=== PATIENT | female | born 1975 | race Caucasian/White ===

== ENCOUNTER 2024-07-27 19:24 | Inpatient (IN) ==
--- NOTE | 2024-07-27 19:42 | Emergency Department Note ---
Impression & Plan Spigelian hernia Discharge ED Provider Note HPI: History obtained from patient. The patient is a 49-year-old female who presents the emergency department chief complaint of abdominal pain and nausea. Patient states that the pain began earlier this afternoon. Patient states that she has a history of a recent cholecystectomy on 06/23/[address] Tashi Curiel, she states that there was a palpable mass underneath the right laparoscopic incision 2 weeks ago at her follow-up appointment with general surgery, she was told this was likely a small hernia and given that it was easily reduced observation was recommended. Patient states earlier today when she developed abdominal pain she felt like this area had enlarged and was tender, she states that she also had some generalized pain throughout her entire abdomen. On arrival here to the ED the patient is hypertensive but otherwise hemodynamically stable, she appears to be in no acute distress on my initial assessment. ROS: - Per HPI Differential Diagnosis: Incarcerated incisional hernia, viral gastroenteritis, small bowel obstruction, perforated viscus, diverticulitis, choledocholithiasis, bile leak, amongst other potential pathologies. *Outpatient medications and allergy history reviewed. PE: General: Alert HEENT: Normocephalic, trachea midline Eyes: Extraocular eye movement is intact, no scleral erythema Pulmonary: Clear to auscultation bilaterally, no wheezing Cardio: Regular rate and rhythm GI: Abdomen is soft to palpation, there is a firm mass palpable to the right side of the abdomen underneath healing incision that is not reducible : No suprapubic tenderness MSK: No evidence of trauma or malformation of the extremities, no edema Skin: No evidence of rash Neuro: Alert, no focal deficits Psychiatric: Cooperative INDEPENDENT INTERPRETATIONS: teletypesetter monitor: (As interpreted by myself): - An order was placed for continuous cardiac monitoring - Patient was noted to be in sinus rhythm with rate of 80 Interventions provided in ED: -IV morphine, IV Zofran, IV fluid bolus Medical Decision Making: IV was established and lab work obtained, patient was placed on cardiac catheterization technologist. I did palpate what I believed to be a hernia underneath the patient's right sided abdominal incision, this was not reducible on my initial attempt as the patient was having pain. At this point lab work was obtained that shows no leukocytosis, hemoglobin is normal, platelet count is normal, CMP does not show any critical findings. CT imaging of the abdomen pelvis was obtained. I did review the images prior to formal interpretation by radiology and did notice a right sided hernia. There was some surrounding fat stranding and therefore I went back into the room and following another dose of pain medicine I did again attempt to reduce the hernia with a satisfactory result. There was a palpable reduction and the patient stated that her pain in that area was immediately improved following the reduction of the hernia. CT imaging results were then interpreted by the radiologist and they did show evidence of a spigelian hernia in the area of concern with possible developing incarceration and small bowel obstruction. On my reassessment the patient remains comfortable, I did palpate the area again and there is no recurrence of the hernia. I discussed the patient's presentation and the above hernia reduction with on-call general surgery, Dr. Villeda, he does state that the patient will require definitive repair of this hernia but it does not need to happen emergently given that there was a satisfactory reduction of the hernia. He will inform Dr. Tashi Curiel of the patient's presentation tonight and the patient can follow-up with her in the office. I did therefore recommend the patient call Dr. Tashi Curiel's office tomorrow morning to schedule her follow-up appointment and to schedule elective repair of her right sided spigelian hernia. Patient expressed an agreement understanding of this, she states her pain is improved, she is in agreement to the above plan and she will return to the ER if she has any recurrence of the hernia or any similar pain. Patient was in agreement to this plan as was her at the bedside and the patient was discharged in stable condition. Consultants/Discussions held with other healthcare providers: -General Surgery, Dr. Villeda Disposition discussion held by myself with: -Patient and at bedside Diagnosis: 1. Right-sided spigelian hernia with developing incarceration, acute 2. Right-sided abdominal wall hernia, acute, reducible Disposition: Discharge Advised outpatient follow up that was discussed with the patient: -Return to the ED immediately with any new or worsening symptoms -Follow up with a PCP in 2-3 Days -General Surgery as discussed, patient will call tomorrow morning to schedule her follow-up appointment Jeremy Jean DO Emergency Medicine Past Med/Surg History Problem List (Updated 07/27/24 @ 22:21 by Jeremy Jean DO) Spigelian hernia (Acute) Chills with fever Biliary colic symptom Hypertension Cholelithiasis RUQ pain Tenosynovitis of ankle Chronic ankle pain Medical History (Updated 07/27/24 @ 22:21 by Jeremy Jean DO) Hx of fall end of April 2024, evaluated by PCP for a mild concussion. pt doing well currently. Hx of vertigo PONV (postoperative nausea and vomiting) Hypertension Seasonal allergies Surgical History (Updated 06/23/24 @ 10:43 by Sravanthi Wright, MERVIN) Hx laparoscopic cholecystectomy (06/23/24) Robotic Assisted Laparoscopic Cholecystectomy(Not Applicable) - Laurie Salas DO History of ear surgery (2018) 1981 and 2018 (BMT) H/O knee surgery (1985) Right Knee Hx of colonoscopy (2019) Family History Father Cancer Hypertension Mother Myocardial infarction Hypertension Diabetes Sister Pancreatic cancer Diabetes Aunt Breast cancer Grandmother Cervical cancer Social History (Updated 05/15/24 @ 13:12 by Taylor Solis RN) Smoking Status: Never smoker Second Hand Exposure: No; Do You Dip or Chew Tobacco: No; Hx Alcohol Use: No Hx Substance Use: No Preferred Language: Kinyarwanda Communication Ability: Effective Electrical Cad Designer Required: No Beliefs That Will Affect Care: None marital status: Current Living Situation: Spouse and Family Current Living Situation Comment: adult son and current occupational status: employed current occupation: Liability Claims Examiner How many Children do You have: 3 Feels Safe at Home: Yes during the past year weight has: remained stable Allergies Allergies Allergy/AdvReac Type Severity Reaction Status Date / Time No Known Allergies Allergy Verified 07/21/24 15:18 Home Meds Home Medications Medication Instructions Recorded Confirmed cyclobenzaprine 10 mg tablet 10 mg PO HS PRN Pain 05/09/24 07/21/24 famotidine 40 mg tablet 40 mg PO HS 05/09/24 07/21/24 fexofenadine 180 mg tablet 180 mg PO QAM 05/09/24 07/21/24 (Allergy Relief (fexofenadine)) fluticasone propionate 50 2 spray intranasal DAILY 05/09/24 07/21/24 mcg/actuation nasal spray,suspension hydroxyzine HCl 25 mg tablet 25 mg PO BID PRN Itching 05/09/24 07/21/24 losartan 100 mg tablet 100 mg PO QAM 05/09/24 07/21/24 nortriptyline 25 mg capsule 25 mg PO HS 05/09/24 07/21/24 pantoprazole 20 mg tablet,delayed 20 mg PO QAM 05/09/24 07/21/24 release sumatriptan succinate 50 mg tablet See Rx Instructions PO .COMPLEX 05/09/24 07/21/24 (Imitrex) azelastine 137 mcg (0.1 %) nasal 2 spray intranasal BID 05/15/24 07/21/24 spray Previous Rx's Medication Instructions Recorded oxycodone 5 mg tablet 5 - 10 mg (1 - 2 x 5 mg) PO 06/23/24 .[id number] PRN pain, for initial therapy, max 6 tabs per day #15 tabs Results & Data (ED) Vital Signs Vital Signs - 24 hr 07/27/24 19:25 07/27/24 19:39 07/27/24 19:59 Temperature 36.8 C Temperature Source Temporal Artery Scan Pulse Rate 83 70 Pulse Rate [Apical] Pulse Rhythm Regular Pulse Rhythm [Apical] Pulse Strength Normal Respiratory Rate 18 Respiratory Effort / Characteristics Non-Labored Spontaneous Respiratory Depth Normal Respiratory Pattern Regular Blood Pressure 184/132 H Blood Pressure [Right Arm] Blood Pressure Mean 149 Blood Pressure Mean [Right Arm] Blood Pressure Position Sitting Blood Pressure Position [Right Arm] Pulse Oximetry 99 97 Oxygen Delivery Method Room Air Room Air Sepsis Recent Fever Within 48 Hours No Sepsis New/Unexplained Change in Mental Status N/A Sepsis Action Taken by Nursing No Action Required 07/27/24 21:25 07/27/24 22:29 Temperature Temperature Source Pulse Rate Pulse Rate [Apical] 71 76 Pulse Rhythm Pulse Rhythm [Apical] Regular Regular Pulse Strength Respiratory Rate 16 16 Respiratory Effort / Characteristics Non-Labored Spontaneous Non-Labored Spontaneous Respiratory Depth Normal Normal Respiratory Pattern Regular Regular Blood Pressure Blood Pressure [Right Arm] 148/94 H 135/91 Blood Pressure Mean Blood Pressure Mean [Right Arm] 112 105 Blood Pressure Position Blood Pressure Position [Right Arm] Semi-fowlers Semi-fowlers Pulse Oximetry 94 97 Oxygen Delivery Method Room Air Room Air Sepsis Recent Fever Within 48 Hours Sepsis New/Unexplained Change in Mental Status Sepsis Action Taken by Nursing Laboratory Data 07/27/24 19:42 07/27/24 19:42 Lab Results 07/27/24 Range/Units 19:42 WBC 9.40 (4.8-10.8) K/ul RBC 5.16 (4.20-5.40) M/uL Hgb 14.4 (12.0-16.0) g/dl Hct 43.1 (37.0-47.0) % MCV 83.5 (80.0-100.0) fL MCH 27.9 (25.0-34.0) pg MCHC 33.4 (32.0-36.0) g/dL RDW Std Deviation 40.4 (36.4-46.3) fL RDW Coeff of Flavio 13.2 (11.5-14.5) % Plt Count 350 (130-400) K/uL MPV 9.2 L (9.4-12.4) fL Immature Gran % (Auto) 0.2 % Neut % (Auto) 68.4 % Lymph % (Auto) 20.1 % Schleicher % (Auto) 8.0 % Eos % (Auto) 2.6 % Baso % (Auto) 0.7 % Neut # (Auto) 6.43 (1.40-6.50) K/uL Lymph # (Auto) 1.89 (1.20-3.40) K/uL Schleicher # (Auto) 0.75 H (0.11-0.59) K/uL Eos # (Auto) 0.24 (0.00-0.50) K/uL Baso # (Auto) 0.07 (0.00-0.20) K/uL Immature Gran # (Auto) 0.02 (0.01-0.20) K/uL PT 10.3 (9.0-12.0) Seconds INR 0.9 (0.9-1.1) Sodium 137 (136-145) mmol/L Potassium 3.3 L (3.5-5.1) mmol/L Chloride 103 (98-107) mmol/L Carbon Dioxide 27 (21-32) mmol/L Anion Gap 7 (3-11) BUN 9 (6-23) mg/dl Creatinine 0.93 (0.6-1.2) mg/dl Est Cr Clr Drug Dosing 73.0 ml/min eGFR 74.88 BUN/Creatinine Ratio 9.7 L (10-20) Glucose 106 H (70-99(Fasting)) mg/dl Calcium 10.1 (8.6-10.3) mg/dl Total Bilirubin 0.4 (0.2-1.0) mg/dl AST 17 (13-39) U/L ALT 13 (7-52) U/L Alkaline Phosphatase 87 (34-104) U/L Total Protein 8.2 (6.0-8.3) gm/dl Albumin 4.7 (3.4-5.0) gm/dl Globulin 3.5 (2.5-4.0) gm/dl Albumin/Globulin Ratio 1.3 (0.9-2) Lipase 15 (11-82) U/L Urine Color Yellow Urine Appearance Clear (Clear) Urine pH 6.0 (4.5-7.5) Ur Specific [place] 1.006 (1.000-1.030) Urine Protein Negative (Negative) Urine Glucose (UA) Negative (Negative) Urine Ketones Negative (Negative) Urine Blood Negative (Negative) Urine Nitrite Negative (Negative) Urine Bilirubin Negative (Negative) Urine Urobilinogen Negative (Negative) Ur Leukocyte Esterase Trace H (Negative) Urine WBC (Auto) 0-5 (0-5) /hpf Urine RBC (Auto) 0-2 (0-2) /hpf U Hyaline Cast (Auto) 0-2 (0-2) /lpf U Epithel Cells (Auto) 0-2 (0-2) /hpf Urine Bacteria (Auto) 1+ H (None Seen) Administered Medications Discontinued Medications Sodium Chloride (Nss) 1,000 mls @ 999 mls/hr IV .Q1H1M ONE Stop: 07/27/24 20:40 Last Infusion: 07/27/24 20:51 Dose: Infused Documented By: Admin: 07/27/24 19:50 Dose: 999 mls/hr Documented By: LANI Morphine Sulfate (Morphine Sulfate 4 Mg/Ml 1 Ml Carp\Vial) 4 mg IV NOW STA Stop: 07/27/24 19:41 Last Admin: 07/27/24 19:50 Dose: 4 mg Documented By: LANI Morphine Sulfate (Morphine Sulfate 4 Mg/Ml 1 Ml Carp\Vial) 4 mg IV NOW STA Stop: 07/27/24 21:19 Last Admin: 07/27/24 21:25 Dose: 4 mg Documented By: LIDYA Ondansetron HCl (Ondansetron Inj 2 Mg/Ml 2 Ml Vial) 4 mg IV NOW STA Stop: 07/27/24 19:41 Last Admin: 07/27/24 19:50 Dose: 4 mg Documented By: JT Imaging Data Radiologist's Impression: Abdomen/Pelvis CT 07/27/24 19:39 CR Exam(s): CT ABDOMEN + PELVIS With Contrast IV Amt: OPTIRAY 320 93ML EXAM: CT Abdomen and Pelvis With Intravenous Contrast CLINICAL HISTORY: abd pain, ? R sided incisional hernia. TECHNIQUE: Axial computed tomography images of the abdomen and pelvis with intravenous contrast. CTDI is 26.73 mGy and DLP is 1258.43 mGy-cm. Automated exposure control was utilized for the study. A dose lowering technique was utilized adhering to the principles of ALARA. CONTRAST: Patient received OPTIRAY 320 93ML of IV contrast COMPARISON: CT abdomen and pelvis with contrast dated 10/25/2018 FINDINGS: Lung bases: Unremarkable. No mass. No consolidation. ABDOMEN: Liver: Unremarkable. No mass. Gallbladder and bile ducts: Cholecystectomy. Ectasia of the common bile duct, measuring up to 11 mm is presumed variation postcholecystectomy. No intrahepatic biliary dilatation. Pancreas: Unremarkable. No mass. No ductal dilation. Spleen: Unremarkable. No splenomegaly. Adrenals: Unremarkable. No mass. Kidneys and ureters: Unremarkable. No solid mass. No hydronephrosis. Stomach and bowel: There is a right spigelian hernia at the level of the umbilicus with herniation of an abnormal appearing fluid distended bowel loop, measuring up to 2.5 cm in diameter. There is evidence of adjacent fat stranding. In addition, there are abnormal dilated fluid and gas distended proximal small bowel loops. The distal small bowel is decompressed. Mild stool burden. No obstruction. PELVIS: Appendix: The appendix is noted in the central pelvis. Bladder: Unremarkable. No mass. Reproductive: There is a cyst involving the left adnexa/ovary measuring 2.4 x 2.4 x 2.2 cm. This is new from the previous examination. The uterus and right adnexa are unremarkable. ABDOMEN and PELVIS: Intraperitoneal space: No free intraperitoneal fluid or pneumoperitoneum. Bones/joints: No acute fracture. No dislocation. Soft tissues: Right spigelian hernia as detailed above. Vasculature: Unremarkable. No abdominal aortic aneurysm. Lymph nodes: Unremarkable. No enlarged lymph nodes. IMPRESSION: There is a right spigelian hernia at the level of the umbilicus with herniation of an abnormal appearing fluid distended bowel loop, measuring up to 2.5 cm in diameter. There is evidence of adjacent fat stranding. In addition, there are abnormal dilated fluid and gas distended proximal small bowel loops. Findings are consistent with a high-grade mid small bowel obstruction and associated questionable developing incarceration at the hernia site. Surgical consultation recommended. No pneumatosis or pneumoperitoneum. No abscess. Communications: Verify Receipt Electronically signed by: Alan Waters MD 07/27/24 22:13 PM Discharge Plan Visit Data Chief Complaint: Abdominal Pain Stated Complaint: ABD PAIN ED Provider: Jeremy Jean Discharge Problem: Spigelian hernia Patient Disposition: Home - Self-Care Condition: Good Discharge Instructions Misty/Other Patient Handouts: ED Hernia (Adult) Activity Restrictions/Additional Instructions: Please follow-up with your general surgeon (Dr. Tashi Curiel) within the next 2 to 3 days for reassessment and further care. Please return to the emergency room if you have any new or acutely worsening symptoms. Forms Stand Alone Forms: My [facility], Important Visit Information Prescriptions Prescriptions: No Action cyclobenzaprine 10 mg tablet 10 mg PO HS PRN (Reason: Pain) famotidine 40 mg tablet 40 mg PO HS fexofenadine [Allergy Relief (fexofenadine)] 180 mg tablet 180 mg PO QAM fluticasone propionate 50 mcg/actuation spray,suspension 2 spray intranasal DAILY Rx Instructions: administer into each nostril hydroxyzine HCl 25 mg tablet 25 mg PO BID PRN (Reason: Itching) losartan 100 mg tablet 100 mg PO QAM nortriptyline 25 mg capsule 25 mg PO HS pantoprazole 20 mg tablet,delayed release (DR/EC) 20 mg PO QAM sumatriptan succinate [Imitrex] 50 mg tablet See Rx Instructions PO .COMPLEX Rx Instructions: take 1 tab at onset of headache; if no relief may repeat 1 tab after at least 2 hrs; max = 4 tabs/24 hr PO azelastine 137 mcg (0.1 %) spray,non-aerosol 2 spray intranasal BID Rx Instructions: administer into each nostril oxycodone 5 mg tablet 5 - 10 mg PO .[id number] PRN (Reason: pain, for initial therapy, max 6 tabs per day) Qty: 15 0RF Referrals Referrals: Jessie Desai MD [Primary Care Provider] - Laurie Salas DO [Physician] -
[2024-07-27] MEDS: SODIUM CHLORIDE 0.9% 1,000 ML IV ONE (19:50)
[2024-07-27] MEDS: MoRPHine SULFATE 4 MG/ML 1 ML CARP\\VIAL IV STA ×2 (19:50→21:25)
[2024-07-27] MEDS: ONDANSETRON INJ 2 MG/ML 2 ML VIAL IV STA (19:50)
[2024-07-27 20:10] LABS: Basophils # (auto) 0.07 K/uL (0.00-0.20); Basophils % (auto) 0.7 %; Eosinophils # (auto) 0.24 K/uL (0.00-0.50); Eosinophils % (auto) 2.6 %; Hematocrit (blood only) 43.1 % (37.0-47.0); Hemoglobin 14.4 g/dl (12.0-16.0); Immature Granulocytes # (auto) 0.02 K/uL (0.01-0.20); Immature Granulocytes % (auto) 0.2 %; Lymphocytes # (auto) 1.89 K/uL (1.20-3.40); Lymphocytes % (auto) 20.1 %; Mean Corpuscular Hemoglobin 27.9 pg (25.0-34.0); Mean Corpuscular Hgb Conc 33.4 g/dL (32.0-36.0); Mean Corpuscular Volume 83.5 fL (80.0-100.0); Mean Platelet Volume 9.2 fL (9.4-12.4); Monocytes # (auto) 0.75 K/uL (0.11-0.59); Neutrophils # (auto) 6.43 K/uL (1.40-6.50); Neutrophils % (auto) 68.4 %; Platelet Count 350 K/uL (130-400); RDW Coefficient of Variation 13.2 % (11.5-14.5); RDW Standard Deviation 40.4 fL (36.4-46.3); Red Blood Count 5.16 M/uL (4.20-5.40)
[2024-07-27 20:15] LABS: Appearance Urine Clear (Clear); Bacteria Urine Automated 1+ (None Seen); Bilirubin Urine Negative (Negative); Blood Urine Negative (Negative); Cast Urine Automated 0-2 /lpf (0-2); Color Urine Yellow; Epithelial Cell Urine Auto 0-2 /hpf (0-2); Glucose Urine UA Negative (Negative); Ketones Urine Negative (Negative); Leukocyte Esterase Urine Trace (Negative); Nitrite Urine Negative (Negative); Protein Urine Negative (Negative); RBC Urine Automated 0-2 /hpf (0-2); Specific Gravity Urine 1.006 (1.000-1.030); Urobilinogen Urine Negative (Negative); WBC Urine Automated 0-5 /hpf (0-5)
[2024-07-27 20:26] LABS: Albumin Globulin Ratio 1.3 (0.9-2); Albumin Level 4.7 gm/dl (3.4-5.0); BUN Creatinine Ratio 9.7 (10-20); Bilirubin,Total 0.4 mg/dl (0.2-1.0); Calcium 10.1 mg/dl (8.6-10.3); Globulin 3.5 gm/dl (2.5-4.0); Potassium 3.3 mmol/L (3.5-5.1); Total Protein 8.2 gm/dl (6.0-8.3)
[2024-07-27 20:35] LABS: INR 0.9 (0.9-1.1); Prothrombin Time 10.3 Seconds (9.0-12.0)
[2024-07-27 21:33] VITALS: RESP 16
--- NOTE | 2024-07-27 22:14 | CT Scan Report ---
Exam(s): CT ABDOMEN + PELVIS With Contrast IV Amt: OPTIRAY 320 93ML EXAM: CT Abdomen and Pelvis With Intravenous Contrast CLINICAL HISTORY: abd pain, ? R sided incisional hernia. TECHNIQUE: Axial computed tomography images of the abdomen and pelvis with intravenous contrast. CTDI is 26.73 mGy and DLP is 1258.43 mGy-cm. Automated exposure control was utilized for the study. A dose lowering technique was utilized adhering to the principles of ALARA. CONTRAST: Patient received OPTIRAY 320 93ML of IV contrast COMPARISON: CT abdomen and pelvis with contrast dated 10/25/2018 FINDINGS: Lung bases: Unremarkable. No mass. No consolidation. ABDOMEN: Liver: Unremarkable. No mass. Gallbladder and bile ducts: Cholecystectomy. Ectasia of the common bile duct, measuring up to 11 mm is presumed variation postcholecystectomy. No intrahepatic biliary dilatation. Pancreas: Unremarkable. No mass. No ductal dilation. Spleen: Unremarkable. No splenomegaly. Adrenals: Unremarkable. No mass. Kidneys and ureters: Unremarkable. No solid mass. No hydronephrosis. Stomach and bowel: There is a right spigelian hernia at the level of the umbilicus with herniation of an abnormal appearing fluid distended bowel loop, measuring up to 2.5 cm in diameter. There is evidence of adjacent fat stranding. In addition, there are abnormal dilated fluid and gas distended proximal small bowel loops. The distal small bowel is decompressed. Mild stool burden. No obstruction. PELVIS: Appendix: The appendix is noted in the central pelvis. Bladder: Unremarkable. No mass. Reproductive: There is a cyst involving the left adnexa/ovary measuring 2.4 x 2.4 x 2.2 cm. This is new from the previous examination. The uterus and right adnexa are unremarkable. ABDOMEN and PELVIS: Intraperitoneal space: No free intraperitoneal fluid or pneumoperitoneum. Bones/joints: No acute fracture. No dislocation. Soft tissues: Right spigelian hernia as detailed above. Vasculature: Unremarkable. No abdominal aortic aneurysm. Lymph nodes: Unremarkable. No enlarged lymph nodes. IMPRESSION: There is a right spigelian hernia at the level of the umbilicus with herniation of an abnormal appearing fluid distended bowel loop, measuring up to 2.5 cm in diameter. There is evidence of adjacent fat stranding. In addition, there are abnormal dilated fluid and gas distended proximal small bowel loops. Findings are consistent with a high-grade mid small bowel obstruction and associated questionable developing incarceration at the hernia site. Surgical consultation recommended. No pneumatosis or pneumoperitoneum. No abscess. Communications: Verify Receipt Electronically signed by: Alan Waters MD 07/27/24 22:13 PM
[2024-07-27] MEDS ORDERED: MoRPHine SULFATE 4 MG/ML 1 ML CARP\\VIAL IV PRN (23:56)
[2024-07-27] MEDS ORDERED: KETOROLAC TROMETHAMINE 15 MG/ML VIAL IV PRN (23:56)
--- NOTE | 2024-07-27 23:58 | History & Physical Report ---
Date of Service July 27, 2024 Assessment & Plan (1) Spigelian hernia: (2) Small bowel obstruction: (3) Hypokalemia: (4) Abdominal pain: Plan The patient is a 49-year-old female with a past medical history including allergic symptoms, muscle spasm, GERD, asthma, hypertension, chronic pain syndrome, and migraine headache.The patient presents to the emergency department with complaints of abdominal pain and nausea that began earlier in the afternoon, had improved somewhat, and then worsened toward the evening. She underwent a cholecystectomy on 06/23/2024, and on 07/21/2024 reports noting a palpable lump noted at her follow-up surgical visit. She was told this likely was a small hernia, and that was easily reducible, and she had no significant symptoms at that point, and would just be watched. Due to symptoms that began earlier in the day today, and her sense that the lump was being enlarged and was now tender, she presents to the ED as noted. In the emergency department, CT scan abdomen pelvis showed a right sided spigelian hernia, at the umbilicus, and concerns regarding high grade small bowel obstruction, and possibly developing incarceration at the hernia site. The Patient symptoms were significantly improved after the emergency department reduced the hernia. Due to the patient's presentation and changing CT scan, [facility] with consult to general surgery, who will see the patient in the a.m. From the ED the patient received the following: Morphine sulfate 4 mg IV x 2, Zofran 4 mg IV, normal saline 1 L fluid bolus, and Zosyn 4.5 g IV. #Spigelian hernia/high-grade small bowel obstruction/status post cholecystectomy- NPO NSS + KCl 20 mEq at 80 mL/h x 2 L Zosyn 4.5 g IV every 8 hours Pantoprazole 40 mg IV daily Zofran 4 mg IV every 6 hours as needed Acetaminophen 1 g IV every 8 hours as needed for mild pain or fever Toradol 10 mg IV every 6 hours as needed for moderate pain Morphine sulfate 4 mg IV every 3 hours needed for severe pain General Surgery consult Hypokalemia- Potassium 3.3 on admission IV fluids as noted and repeat in a.m. Chronic medical conditions: Migraine headache-continue sumatriptan succinate as needed GERD-change pantoprazole from 20 mg p.o. to 40 mg IV daily. Holding famotidine Asthma-continue routine inhalers Hypertension-Hold losartan. Placed on hydralazine 10 mg IV every 6 hours as needed for systolic blood pressure greater than 160 Chronic pain syndrome-holding nortriptyline, cyclobenzaprine, and oxycodone, and little treatment as above History of Present Illness Chief Complaint: The patient presents to the emergency department with complaints of abdominal pain and nausea that began earlier in the afternoon, had improved somewhat, and then worsened toward the evening. She underwent a cholecystectomy on 06/23/2024, and on 07/21/2024 reports noting a palpable lump noted at her follow-up surgical visit. She was told this likely was a small hernia, and that was easily reducible, and she had no significant symptoms at that point, and would just be watched. Due to symptoms that began earlier in the day today, and her sense that the lump was being enlarged and was now tender, she presents to the ED as noted. In the emergency department, CT scan abdomen pelvis showed a right sided spigelian hernia, at the umbilicus, and concerns regarding high grade small bowel obstruction, and possibly developing incarceration at the hernia site. The Patient symptoms were significantly improved after the emergency department reduced the hernia. Due to the patient's presentation and changing CT scan, she was [facility] with consult to general surgery, who will see the patient in the a.m. Primary Care Provider: Jessie Desai MD The patient is a 49-year-old female with a past medical history including allergic symptoms, muscle spasm, GERD, asthma, hypertension, chronic pain syndrome, and migraine headache.The patient presents to the emergency department with complaints of abdominal pain and nausea that began earlier in the afternoon, had improved somewhat, and then worsened toward the evening. She underwent a cholecystectomy on 06/23/2024, and on 07/21/2024 reports noting a palpable lump noted at her follow-up surgical visit. She was told this likely was a small hernia, and that was easily reducible, and she had no significant symptoms at that point, and would just be watched. Due to symptoms that began earlier in the day today, and her sense that the lump was being enlarged and was now tender, she presents to the ED as noted. In the emergency department, CT scan abdomen pelvis showed a right sided spigelian hernia, at the umbilicus, and concerns regarding high grade small bowel obstruction, and possibly developing incarceration at the hernia site. The Patient symptoms were significantly impro shady after the emergency department reduced the hernia. Due to the patient's presentation and changing CT scan, she was [facility] with consult to general surgery, who will see the patient in the a.m. Allergies Allergy/AdvReac Type Severity Reaction Status Date / Time No Known Allergies Allergy Verified 07/21/24 15:18 Home Medications Medication Instructions Recorded Confirmed Type cyclobenzaprine 10 mg tablet 10 mg PO HS PRN Pain 05/09/24 07/21/24 History famotidine 40 mg tablet 40 mg PO HS 05/09/24 07/21/24 History fexofenadine 180 mg tablet 180 mg PO QAM 05/09/24 07/21/24 History (Allergy Relief (fexofenadine)) fluticasone propionate 50 2 spray intranasal DAILY 05/09/24 07/21/24 History mcg/actuation nasal spray,suspension hydroxyzine HCl 25 mg tablet 25 mg PO BID PRN Itching 05/09/24 07/21/24 History losartan 100 mg tablet 100 mg PO QAM 05/09/24 07/21/24 History nortriptyline 25 mg capsule 25 mg PO HS 05/09/24 07/21/24 History pantoprazole 20 mg tablet,delayed 20 mg PO QAM 05/09/24 07/21/24 History release sumatriptan succinate 50 mg tablet See Rx Instructions PO .COMPLEX 05/09/24 07/21/24 History (Imitrex) azelastine 137 mcg (0.1 %) nasal 2 spray intranasal BID 05/15/24 07/21/24 History spray oxycodone 5 mg tablet 5 - 10 mg (1 - 2 x 5 mg) PO 06/23/24 07/21/24 Rx .[id number] PRN pain, for initial therapy, max 6 tabs per day #15 tabs Past Med/Surg History Problem List (Updated 07/28/24 @ 02:45 by Hardik Lambert MD) Abdominal pain Hypokalemia Small bowel obstruction Spigelian hernia (Acute) Chills with fever Biliary colic symptom Hypertension Cholelithiasis RUQ pain Tenosynovitis of ankle Chronic ankle pain Medical History (Updated 07/28/24 @ 02:45 by Hardik Lambert MD) Hx of fall end of April 2024, evaluated by PCP for a mild concussion. pt doing well currently. Hx of vertigo PONV (postoperative nausea and vomiting) Hypertension Seasonal allergies Surgical History (Updated 06/23/24 @ 10:43 by Sravanthi Wright RN) Hx laparoscopic cholecystectomy (06/23/24) Robotic Assisted Laparoscopic Cholecystectomy(Not Applicable) - Laurie Salas DO History of ear surgery (2018) 1981 and 2018 (BMT) H/O knee surgery (1985) Right Knee Hx of colonoscopy (2019) Family History Father Cancer Hypertension Mother Myocardial infarction Hypertension Diabetes Sister Pancreatic cancer Diabetes Aunt Breast cancer Grandmother Cervical cancer Social History (Updated 05/15/24 @ 13:12 by Taylor Solis RN) Smoking Status: Never smoker Second Hand Exposure: No; Do You Dip or Chew Tobacco: No; Hx Alcohol Use: No Hx Substance Use: No Preferred Language: Indonesian Communication Ability: Effective Esol Teacher Required: No Beliefs That Will Affect Care: None marital status: Current Living Situation: Spouse and Family Current Living Situation Comment: adult son and current occupational status: employed current occupation: Abstract Clerk How many Children do You have: 3 Feels Safe at Home: Yes during the past year weight has: remained stable Review of Systems Review of Systems: The patient denies chest pain, palpitations, shortness of breath, dyspnea on exertion, cough, lower extremity swelling, sore throat, fevers, chills, sweats, vomiting, blood in urine or stool, dysuria, urinary frequency or urgency, lightheadedness, dizziness, headache, memory loss, loss of consciousness, rash, abnormal bruising or bleeding, imbalance, focal weakness, numbness or tingling in arms or legs, generalized arthralgias or myalgias, back or neck pain, or night sweats. The review of systems is otherwise negative other than for that already noted above, and at least 10 systems have been reviewed. Physical Exam Physical Exam: The patient is awake, alert and oriented 3, well developed and well nourished, normocephalic and atraumatic, lying in bed and in no acute distress. HEENT--PERRL, EOMI, mucous membranes and oropharynx mildly dry. Neck--supple. No JVD. No bruits. Thyroid normal, trachea midline, no adenopathy. Heart--normal S1 and S2. No murmurs, rubs or gallops. Lungs--clear bilaterally, no respiratory distress, no accessory muscle use. Abdomen--decreased bowel sounds. Firm area with mild tenderness to the right side of the abdomen, underneath healing incision. Extremities--no cyanosis or clubbing. No edema. There are good distal pulses b/l. Dermatologic--normal skin turgor, normal color, no abnormal lymph nodes, no rash. Neurologic--cranial nerves II through XII grossly intact. Rheumatologic--normal range of motion. Psychiatric--normal affect. Results & Data Results & Data Vital Signs (Past 12 Hours) Vital Signs Temp Pulse Pulse Resp BP BP Pulse Ox 07/27/24 22:29 76 16 135/91 97 07/27/24 21:25 71 16 148/94 H 94 07/27/24 19:59 70 07/27/24 19:39 97 07/27/24 19:25 36.8 C 83 18 184/132 H 99 O2 Del Method 07/27/24 22:29 Room Air 07/27/24 21:25 Room Air 07/27/24 19:59 07/27/24 19:39 Room Air 07/27/24 19:25 Room Air Laboratory Results Laboratory Results WBC 9.40 K/ul (4.8-10.8) 07/27/24 19:42 RBC 5.16 M/uL (4.20-5.40) 07/27/24 19:42 Hgb 14.4 g/dl (12.0-16.0) 07/27/24 19:42 Hct 43.1 % (37.0-47.0) 07/27/24 19:42 MCV 83.5 fL (80.0-100.0) 07/27/24 19:42 MCH 27.9 pg (25.0-34.0) 07/27/24 19:42 MCHC 33.4 g/dL (32.0-36.0) 07/27/24 19:42 RDW Std Deviation 40.4 fL (36.4-46.3) 07/27/24 19:42 RDW Coeff of Flavio 13.2 % (11.5-14.5) 07/27/24 19:42 Plt Count 350 K/uL (130-400) 07/27/24 19:42 MPV 9.2 fL (9.4-12.4) L 07/27/24 19:42 Immature Gran % (Auto) 0.2 % 07/27/24 19:42 Neut % (Auto) 68.4 % 07/27/24 19:42 Lymph % (Auto) 20.1 % 07/27/24 19:42 [place] % (Auto) 8.0 % 07/27/24 19:42 Eos % (Auto) 2.6 % 07/27/24 19:42 Baso % (Auto) 0.7 % 07/27/24 19:42 Neut # (Auto) 6.43 K/uL (1.40-6.50) 07/27/24 19:42 Lymph # (Auto) 1.89 K/uL (1.20-3.40) 07/27/24 19:42 [place] # (Auto) 0.75 K/uL (0.11-0.59) H 07/27/24 19:42 Eos # (Auto) 0.24 K/uL (0.00-0.50) 07/27/24 19:42 Baso # (Auto) 0.07 K/uL (0.00-0.20) 07/27/24 19:42 Immature Gran # (Auto) 0.02 K/uL (0.01-0.20) 07/27/24 19:42 PT 10.3 Seconds (9.0-12.0) 07/27/24 19:42 INR 0.9 (0.9-1.1) 07/27/24 19:42 Sodium 137 mmol/L (136-145) 07/27/24 19:42 Potassium 3.3 mmol/L (3.5-5.1) L 07/27/24 19:42 Chloride 103 mmol/L (98-107) 07/27/24 19:42 Carbon Dioxide 27 mmol/L (21-32) 07/27/24 19:42 Anion Gap 7 (3-11) 07/27/24 19:42 BUN 9 mg/dl (6-23) 07/27/24 19:42 Creatinine 0.93 mg/dl (0.6-1.2) 07/27/24 19:42 Est Cr Clr Drug Dosing 73.0 ml/min 07/27/24 19:42 eGFR 74.88 07/27/24 19:42 BUN/Creatinine Ratio 9.7 (10-20) L 07/27/24 19:42 Glucose 106 mg/dl (70-99(Fasting)) H 07/27/24 19:42 Calcium 10.1 mg/dl (8.6-10.3) 07/27/24 19:42 Total Bilirubin 0.4 mg/dl (0.2-1.0) 07/27/24 19:42 AST 17 U/L (13-39) 07/27/24 19:42 ALT 13 U/L (7-52) 07/27/24 19:42 Alkaline Phosphatase 87 U/L (34-104) 07/27/24 19:42 Total Protein 8.2 gm/dl (6.0-8.3) 07/27/24 19:42 Albumin 4.7 gm/dl (3.4-5.0) 07/27/24 19:42 Globulin 3.5 gm/dl (2.5-4.0) 07/27/24 19:42 Albumin/Globulin Ratio 1.3 (0.9-2) 07/27/24 19:42 Lipase 15 U/L (11-82) 07/27/24 19:42 Urine Color Yellow 07/27/24 19:42 Urine Appearance Clear (Clear) 07/27/24 19:42 Urine pH 6.0 (4.5-7.5) 07/27/24 19:42 Ur Specific [place] 1.006 (1.000-1.030) 07/27/24 19:42 Urine Protein Negative (Negative) 07/27/24 19:42 Urine Glucose (UA) Negative (Negative) 07/27/24 19:42 Urine Ketones Negative (Negative) 07/27/24 19:42 Urine Blood Negative (Negative) 07/27/24 19:42 Urine Nitrite Negative (Negative) 07/27/24 19:42 Urine Bilirubin Negative (Negative) 07/27/24 19:42 Urine Urobilinogen Negative (Negative) 07/27/24 19:42 Ur Leukocyte Esterase Trace (Negative) H 07/27/24 19:42 Urine WBC (Auto) 0-5 /hpf (0-5) 07/27/24 19:42 Urine RBC (Auto) 0-2 /hpf (0-2) 07/27/24 19:42 U Hyaline Cast (Auto) 0-2 /lpf (0-2) 07/27/24 19:42 U Epithel Cells (Auto) 0-2 /hpf (0-2) 07/27/24 19:42 Urine Bacteria (Auto) 1+ (None Seen) H 07/27/24 19:42 Impressions Abdomen/Pelvis CT 07/27/24 19:39 CR Exam(s): CT ABDOMEN + PELVIS With Contrast IV Amt: OPTIRAY 320 93ML EXAM: CT Abdomen and Pelvis With Intravenous Contrast CLINICAL HISTORY: abd pain, ? R sided incisional hernia. TECHNIQUE: Axial computed tomography images of the abdomen and pelvis with intravenous contrast. CTDI is 26.73 mGy and DLP is 1258.43 mGy-cm. Automated exposure control was utilized for the study. A dose lowering technique was utilized adhering to the principles of ALARA. CONTRAST: Patient received OPTIRAY 320 93ML of IV contrast COMPARISON: CT abdomen and pelvis with contrast dated 10/25/2018 FINDINGS: Lung bases: Unremarkable. No mass. No consolidation. ABDOMEN: Liver: Unremarkable. No mass. Gallbladder and bile ducts: Cholecystectomy. Ectasia of the common bile duct, measuring up to 11 mm is presumed variation postcholecystectomy. No intrahepatic biliary dilatation. Pancreas: Unremarkable. No mass. No ductal dilation. Spleen: Unremarkable. No splenomegaly. Adrenals: Unremarkable. No mass. Kidneys and ureters: Unremarkable. No solid mass. No hydronephrosis. Stomach and bowel: There is a right spigelian hernia at the level of the umbilicus with herniation of an abnormal appearing fluid distended bowel loop, measuring up to 2.5 cm in diameter. There is evidence of adjacent fat stranding. In addition, there are abnormal dilated fluid and gas distended proximal small bowel loops. The distal small bowel is decompressed. Mild stool burden. No obstruction. PELVIS: Appendix: The appendix is noted in the central pelvis. Bladder: Unremarkable. No mass. Reproductive: There is a cyst involving the left adnexa/ovary measuring 2.4 x 2.4 x 2.2 cm. This is new from the previous examination. The uterus and right adnexa are unremarkable. ABDOMEN and PELVIS: Intraperitoneal space: No free intraperitoneal fluid or pneumoperitoneum. Bones/joints: No acute fracture. No dislocation. Soft tissues: Right spigelian hernia as detailed above. Vasculature: Unremarkable. No abdominal aortic aneurysm. Lymph nodes: Unremarkable. No enlarged lymph nodes. IMPRESSION: There is a right spigelian hernia at the level of the umbilicus with herniation of an abnormal appearing fluid distended bowel loop, measuring up to 2.5 cm in diameter. There is evidence of adjacent fat stranding. In addition, there are abnormal dilated fluid and gas distended proximal small bowel loops. Findings are consistent with a high-grade mid small bowel obstruction and associated questionable developing incarceration at the hernia site. Surgical consultation recommended. No pneumatosis or pneumoperitoneum. No abscess. Communications: Verify Receipt Electronically signed by: Alan Waters MD 07/27/24 22:13 PM Code Status & VTE Plan Code Status Full code VTE Prophylaxis Plan VTE Prophylaxis will be ordered: Yes PG Care Time/CCT Total # of Minutes Spent Total Time Spent with Patient: Total time spent is greater than 50% in coordination of care (as documented) at patient's floor/unit and/or counseling patient: Coding Level of Care Code 90028 INT INP/OBS CARE 3/75MIN Diagnoses Spigelian hernia K43.9 Small bowel obstruction K56.609 Hypokalemia E87.6 Abdominal pain R10.9
[2024-07-28] MEDS: NSS + 20MEQ KCL 20 MEQ/1,000 ML BAG IV SCH (00:32)
[2024-07-28] MEDS: PIPERACILLIN/TAZOBACTAM 4.5 GM/100 ML BAG IV ONE (00:52)
[2024-07-28] MEDS ORDERED: SUMAtriptan succinate 50 MG TAB PO PRN (02:36)
[2024-07-28] MEDS ORDERED: hydrALAZINE HCL 20 MG/ML VIAL IV PRN (02:48)
[2024-07-28] MEDS: PANTOprazole 40 MG/10 ML SYR IV ONE (02:54)
[2024-07-28] MEDS: PIPERACILLIN/TAZOBACTAM 4.5 GM/100 ML BAG IV SCH (05:27)
[2024-07-28] MEDS: ACETAMINOPHEN 1,000 MG/100 ML VIAL IV PRN (07:55)
[2024-07-28 07:56] LABS: Basophils # (auto) 0.04 K/uL (0.00-0.20); Basophils % (auto) 0.6 %; Eosinophils # (auto) 0.22 K/uL (0.00-0.50); Eosinophils % (auto) 3.3 %; Hematocrit (blood only) 35.8 % (37.0-47.0); Immature Granulocytes # (auto) 0.02 K/uL (0.01-0.20); Immature Granulocytes % (auto) 0.3 %; Lymphocytes # (auto) 1.42 K/uL (1.20-3.40); Lymphocytes % (auto) 21.1 %; Mean Corpuscular Hemoglobin 28.6 pg (25.0-34.0); Mean Corpuscular Hgb Conc 33.5 g/dL (32.0-36.0); Mean Corpuscular Volume 85.4 fL (80.0-100.0); Mean Platelet Volume 9.4 fL (9.4-12.4); Monocytes # (auto) 0.56 K/uL (0.11-0.59); Monocytes % (auto) 8.3 %; Neutrophils # (auto) 4.47 K/uL (1.40-6.50); Neutrophils % (auto) 66.4 %; Platelet Count 283 K/uL (130-400); RDW Coefficient of Variation 13.2 % (11.5-14.5); Red Blood Count 4.19 M/uL (4.20-5.40); White Blood Count 6.73 K/ul (4.8-10.8)
[2024-07-28 08:00] LABS: Albumin Globulin Ratio 1.4 (0.9-2); Albumin Level 3.7 gm/dl (3.4-5.0); BUN Creatinine Ratio 8.6 (10-20); Bilirubin,Total 0.6 mg/dl (0.2-1.0); Calcium 8.5 mg/dl (8.6-10.3); Creatinine Clr Calc Pharmacy 73.9 ml/min; Globulin 2.7 gm/dl (2.5-4.0); Potassium 4.1 mmol/L (3.5-5.1); Total Protein 6.4 gm/dl (6.0-8.3)
[2024-07-28] MEDS: PANTOprazole 40 MG/10 ML SYR IV SCH (09:30)
--- NOTE | 2024-07-28 11:00 | Surgery Consultation ---
Date of Consultation July 28, 2024 Assessment & Plan (1) Abdominal pain: (2) Small bowel obstruction: (3) Incisional hernia: 49 yo female who is currently 1 month s/p robotic cholecystectomy presented to ED with increasing abdominal pain, distention, nausea and found to have incisional hernia containing small bowel and high grade SBO. Hernis was able to be reduced in emergency department and has stayed reduced on examination. No flatus yet but abdomen is soft on exam with minimal tenderness at incision site. No palpable incarcerated hernia. Can advance diet to clears, advised to go slowly, abdominal binder, ambulate hallway and if starts passing flatus and/or tolerating clear liquids can slowly advance diet. Will need to wear abdominal binder at home with any activity to prevent hernia incarceration again and close outpatient follow up with Dr. Salas. Continue medical management. Dr. Villeda has seen and examined pt, agrees with above. History of Present Illness Reason for Consultation: Incisional hernia with SBO Attending Physician: Miriam Chung MD History of Present Illness Bethany is a 49 yo female who recently underwent robotic assisted cholecystectomy by Dr. Salas beginning of June presented to ED with increasing abdominal pain, nausea, and bulge at her one robotic incision sites. Pain suddenly increased yesterday morning with distention and inability to eat much. Found to have hernia at the right incision site with small bowel and subsequent SBO. Hernia was able to be reduced in emergency department but she had vomiting after trial of sprite and was admitted to hospital. She currently states she is feeling much better. Tenderness at incision site but no palpable bulge. Not passing gas yet but no longer feeling bloating. No severe pain. No nausea or vomiting. Has not had anything to drink yet this morning. Allergies Allergy/AdvReac Type Severity Reaction Status Date / Time No Known Allergies Allergy Verified 07/21/24 15:18 Home Medications Medication Instructions Recorded Confirmed Type cyclobenzaprine 10 mg tablet 10 mg PO HS PRN Pain 05/09/24 07/21/24 History famotidine 40 mg tablet 40 mg PO HS 05/09/24 07/21/24 History fexofenadine 180 mg tablet 180 mg PO QAM 05/09/24 07/21/24 History (Allergy Relief (fexofenadine)) fluticasone propionate 50 2 spray intranasal DAILY 05/09/24 07/21/24 History mcg/actuation nasal spray,suspension hydroxyzine HCl 25 mg tablet 25 mg PO BID PRN Itching 05/09/24 07/21/24 History losartan 100 mg tablet 100 mg PO QAM 05/09/24 07/21/24 History nortriptyline 25 mg capsule 25 mg PO HS 05/09/24 07/21/24 History pantoprazole 20 mg tablet,delayed 20 mg PO QAM 05/09/24 07/21/24 History release sumatriptan succinate 50 mg tablet See Rx Instructions PO .COMPLEX 05/09/24 07/21/24 History (Imitrex) azelastine 137 mcg (0.1 %) nasal 2 spray intranasal BID 05/15/24 07/21/24 History spray oxycodone 5 mg tablet 5 - 10 mg (1 - 2 x 5 mg) PO 06/23/24 07/21/24 Rx .[id number] PRN pain, for initial therapy, max 6 tabs per day #15 tabs Patient History Medical History (Updated 07/28/24 @ 11:43 by Christie Muhammad PA-C) Hx of fall end of April 2024, evaluated by PCP for a mild concussion. pt doing well currently. Hx of vertigo PONV (postoperative nausea and vomiting) Hypertension Seasonal allergies Surgical History (Updated 06/23/24 @ 10:43 by Sravanthi Wright RN) Hx laparoscopic cholecystectomy (06/23/24) Robotic Assisted Laparoscopic Cholecystectomy(Not Applicable) - Laurie Salas, DO History of ear surgery (2017) 1981 and 2018 (BMT) H/O knee surgery (1985) Right Knee Hx of colonoscopy (2019) Family History Father Cancer Hypertension Mother Myocardial infarction Hypertension Diabetes Sister Pancreatic cancer Diabetes Aunt Breast cancer Grandmother Cervical cancer Social History (Updated 05/15/24 @ 13:12 by Taylor Solis RN) Smoking Status: Never smoker Second Hand Exposure: No; Do You Dip or Chew Tobacco: No; Hx Alcohol Use: No Hx Substance Use: No Preferred Language: Latvian Communication Ability: Effective Title Closer Required: No Beliefs That Will Affect Care: None marital status: Current Living Situation: Family Current Living Situation Comment: adult son and current occupational status: employed current occupation: Technology Project Manager How many Children do You have: 3 Other Information That Helps Us Care for You: No Feels Safe at Home: Yes Safety Concerns: Feels Safe At This Time during the past year weight has: remained stable Physical Exam Constitutional: WD/WN, vitals as above cooperative and comfortable; no acute distress and not ill appearing Respiratory: normal respiratory effort; no respiratory distress and no labored breathing Gastrointestinal (Abdomen): Inspection/Auscultation: abdomen normal to inspection and + abdominal surgical scar (robotic cholecystectomy scars); abdomen not distended and no visible herniation Percussion/Palpation: + abdomen tender (mild at the right robotic incision) and abdomen soft; no guarding, abdomen not rigid and abdomen not firm Incisional right hernia has been reduced and no palpable bulge on examination. Skin: no rashes, warm and dry Psychiatric: Orientation: alert and oriented x 3 Results & Data Vital Signs (Past 12 Hours) Vital Signs Temp Pulse Pulse Pulse Resp BP BP 07/28/24 07:18 36.7 C 66 16 144/82 H 07/28/24 03:07 36.6 C 71 16 173/84 H 07/28/24 02:16 78 16 147/90 H 07/28/24 00:31 71 16 145/90 H Pulse Ox O2 Del Method 07/28/24 07:18 98 Room Air 07/28/24 03:07 97 Room Air 07/28/24 02:16 98 Room Air 07/28/24 00:31 94 Room Air Laboratory Results 07/28/24 07/27/24 Range/Units 07:10 19:42 WBC 6.73 9.40 (4.8-10.8) K/ul RBC 4.19 L 5.16 (4.20-5.40) M/uL Hgb 12.0 14.4 (12.0-16.0) g/dl Hct 35.8 L 43.1 (37.0-47.0) % MCV 85.4 83.5 (80.0-100.0) fL MCH 28.6 27.9 (25.0-34.0) pg MCHC 33.5 33.4 (32.0-36.0) g/dL RDW Std Deviation 41.0 40.4 (36.4-46.3) fL RDW Coeff of Flavio 13.2 13.2 (11.5-14.5) % Plt Count 283 350 (130-400) K/uL MPV 9.4 9.2 L (9.4-12.4) fL Immature Gran % (Auto) 0.3 0.2 % Neut % (Auto) 66.4 68.4 % Lymph % (Auto) 21.1 20.1 % Willacy % (Auto) 8.3 8.0 % Eos % (Auto) 3.3 2.6 % Baso % (Auto) 0.6 0.7 % Neut # (Auto) 4.47 6.43 (1.40-6.50) K/uL Lymph # (Auto) 1.42 1.89 (1.20-3.40) K/uL Willacy # (Auto) 0.56 0.75 H (0.11-0.59) K/uL Eos # (Auto) 0.22 0.24 (0.00-0.50) K/uL Baso # (Auto) 0.04 0.07 (0.00-0.20) K/uL Immature Gran # (Auto) 0.02 0.02 (0.01-0.20) K/uL PT 10.3 (9.0-12.0) Seconds INR 0.9 (0.9-1.1) Sodium 140 137 (136-145) mmol/L Potassium 4.1 D 3.3 L (3.5-5.1) mmol/L Chloride 109 H 103 (98-107) mmol/L Carbon Dioxide 27 27 (21-32) mmol/L Anion Gap 4 7 (3-11) BUN 8 9 (6-23) mg/dl Creatinine 0.93 0.93 (0.6-1.2) mg/dl Est Cr Clr Drug Dosing 73.9 73.0 ml/min eGFR 74.88 74.88 BUN/Creatinine Ratio 8.6 L 9.7 L (10-20) Glucose 111 H 106 H (70-99(Fasting)) mg/dl Calcium 8.5 L 10.1 (8.6-10.3) mg/dl Magnesium 2.0 (1.7-2.4) mg/dl Total Bilirubin 0.6 0.4 (0.2-1.0) mg/dl AST 14 17 (13-39) U/L ALT 12 13 (7-52) U/L Alkaline Phosphatase 71 87 (34-104) U/L Total Protein 6.4 D 8.2 (6.0-8.3) gm/dl Albumin 3.7 4.7 (3.4-5.0) gm/dl Globulin 2.7 3.5 (2.5-4.0) gm/dl Albumin/Globulin Ratio 1.4 1.3 (0.9-2) Lipase 15 (11-82) U/L Urine Color Yellow Urine Appearance Clear (Clear) Urine pH 6.0 (4.5-7.5) Ur Specific Ray 1.006 (1.000-1.030) Urine Protein Negative (Negative) Urine Glucose (UA) Negative (Negative) Urine Ketones Negative (Negative) Urine Blood Negative (Negative) Urine Nitrite Negative (Negative) Urine Bilirubin Negative (Negative) Urine Urobilinogen Negative (Negative) Ur Leukocyte Esterase Trace H (Negative) Urine WBC (Auto) 0-5 (0-5) /hpf Urine RBC (Auto) 0-2 (0-2) /hpf U Hyaline Cast (Auto) 0-2 (0-2) /lpf U Epithel Cells (Auto) 0-2 (0-2) /hpf Urine Bacteria (Auto) 1+ H (None Seen) Diagnostic Findings CT Abdomen and Pelvis With Intravenous Contrast CLINICAL HISTORY: abd pain, ? R sided incisional hernia. TECHNIQUE: Axial computed tomography images of the abdomen and pelvis with intravenous contrast. CTDI is 26.73 mGy and DLP is 1258.43 mGy-cm. Automated exposure control was utilized for the study. A dose lowering technique was utilized adhering to the principles of ALARA. CONTRAST: Patient received OPTIRAY 320 93ML of IV contrast COMPARISON: CT abdomen and pelvis with contrast dated 10/25/2018 FINDINGS: Lung bases: Unremarkable. No mass. No consolidation. ABDOMEN: Liver: Unremarkable. No mass. Gallbladder and bile ducts: Cholecystectomy. Ectasia of the common bile duct, measuring up to 11 mm is presumed variation postcholecystectomy. No intrahepatic biliary dilatation. Pancreas: Unremarkable. No mass. No ductal dilation. Spleen: Unremarkable. No splenomegaly. Adrenals: Unremarkable. No mass. Kidneys and ureters: Unremarkable. No solid mass. No hydronephrosis. Stomach and bowel: There is a right spigelian hernia at the level of the umbilicus with herniation of an abnormal appearing fluid distended bowel loop, measuring up to 2.5 cm in diameter. There is evidence of adjacent fat stranding. In addition, there are abnormal dilated fluid and gas distended proximal small bowel loops. The distal small bowel is decompressed. Mild stool burden. No obstruction. PELVIS: Appendix: The appendix is noted in the central pelvis. Bladder: Unremarkable. No mass. Reproductive: There is a cyst involving the left adnexa/ovary measuring 2.4 x 2.4 x 2.2 cm. This is new from the previous examination. The uterus and right adnexa are unremarkable. ABDOMEN and PELVIS: Intraperitoneal space: No free intraperitoneal fluid or pneumoperitoneum. Bones/joints: No acute fracture. No dislocation. Soft tissues: Right spigelian hernia as detailed above. Vasculature: Unremarkable. No abdominal aortic aneurysm. Lymph nodes: Unremarkable. No enlarged lymph nodes. IMPRESSION: There is a right spigelian hernia at the level of the umbilicus with herniation of an abnormal appearing fluid distended bowel loop, measuring up to 2.5 cm in diameter. There is evidence of adjacent fat stranding. In addition, there are abnormal dilated fluid and gas distended proximal small bowel loops. Findings are consistent with a high-grade mid small bowel obstruction and associated questionable developing incarceration at the hernia site. Surgical consultation recommended. No pneumatosis or pneumoperitoneum. No abscess.
--- NOTE | 2024-07-28 12:30 | Hospitalist Progress Note ---
Date of Service July 28, 2024 Assessment & Plan (1) Spigelian hernia: (2) Small bowel obstruction: (3) Abdominal pain: Plan The patient is a 49-year-old female with a past medical history including allergic symptoms, muscle spasm, GERD, asthma, hypertension, chronic pain syndrome, and migraine headache. Presented to the ED with complaints of abdominal pain and nausea that began earlier in the afternoon on 07/27, had improved somewhat, and then worsened toward the evening. She underwent a cholecystectomy on 06/23/2024, and on 07/21/2024 reports noting a palpable lump noted at her follow-up surgical visit. She was told this likely was a small hernia, and that was easily reducible, and she had no significant symptoms at that point, and would just be watched. Due to symptoms that began earlier in the day today, and her sense that the lump was being enlarged and was now tender, she presented to the ED as noted. In the emergency department, CT scan abdomen pelvis showed a right sided spigelian hernia at the umbilicus, and concerns regarding high grade small bowel obstruc tion, and possibly developing incarceration at the hernia site. The patient's symptoms were significantly improved after the emergency department reduced the hernia. Due to the patient's presentation and changing CT scan, [facility] to [facility] surgery. #Spigelian hernia/high-grade small bowel obstruction/status post cholecystectomy - Episode of bilious emesis 07/28, no associated nausea or worsened abdominal pain/distention - Spigelian hernia has stayed reduced since reduction in ED on presentation - Discontinued Zosyn as no signs of acute infection - General surgery consulted Advance to clear liquid diet - advised to go slowly Wear abdominal binder - recommend wearing at home with any activity to prevent hernia incarceration Recommend close outpatient f/u with Dr. Salas - Continue Pantoprazole 40 mg IV daily, Zofran 4 mg IV q6h prn - Continue Acetaminophen 650 mg PO q4h prn, Toradol 10 mg IV q6h prn moderate pain, Morphine sulfate 4 mg IV q3h prn severe pain #Hypokalemia Potassium 3.3 on admission, repleted and augmented appropriately now WNL Chronic medical conditions: #Migraine headache-continue sumatriptan succinate as needed #GERD-change pantoprazole from 20 mg p.o. to 40 mg IV daily. Holding famotidine #Asthma-continue routine inhalers #Hypertension-Hold losartan. Placed on hydralazine 10 mg IV every 6 hours as needed for systolic blood pressure greater than 160 #Chronic pain syndrome-holding nortriptyline, cyclobenzaprine, and oxycodone, and little treatment as above Discussed plan with surgical team Updated at bedside Discontinued antibiotics Admission and Anticipated Discharge Date Admission Date: July 27, 2024 Subjective Patient seen and evaluated at bedside with her present. She just had an episode of bilious vomiting prior to my arrival. She reports she sat up in bed to trial her tray of clear liquids, when she quickly vomited. She denied feeling nauseous prior to this. She denies worsened abdominal pain, nausea, or return of her hernia at this time. She denies passing gas yet. Discussed that she can continue on clear liquids, but to be cautious and slow. Encouraged ambulation with abdominal binder. Informed to notify her RN if she experiences nausea, worsened abdominal pain, bloating, or passess gas. No additional complaints or concerns at this time. Physical Exam Physical Exam: General: No acute distress, nondiaphoretic, well-developed, well-nourished. Cardiac: Regular rate and rhythm without murmurs gallops or rubs. Pulm: Clear to auscultation bilaterally without wheezes, rales or rhonchi. Normal respiratory effort. 98% on room air. Abdominal: Soft, nontender, nondistended. Bowel sounds present. Lap maren incisions healing well without signs of infection. No hernia appreciated at this time. Neuro: A&O x3. No focal neurological deficits. Results & Data Results & Data Vital Signs (Past 12 Hours) Vital Signs Temp Pulse Pulse Pulse Resp BP BP 07/28/24 07:45 07/28/24 07:18 98.1 F 66 16 144/82 H 07/28/24 03:07 97.9 F 71 16 173/84 H 07/28/24 02:16 78 16 147/90 H 07/28/24 00:31 71 16 145/90 H Pulse Ox O2 Del Method 07/28/24 07:45 Room Air 07/28/24 07:18 98 Room Air 07/28/24 03:07 97 Room Air 07/28/24 02:16 98 Room Air 07/28/24 00:31 94 Room Air Laboratory Results Reviewed CBC with differential Reviewed CMP/chemistries PG Care Time/CCT Total # of Minutes Spent Total Time Spent with Patient: Total time spent is greater than 50% in coordination of care (as documented) at patient's floor/unit and/or counseling patient: Coding Level of Care Code 62178 SUB INP/OBS CARE 3/50MIN Diagnoses Spigelian hernia K43.9 Small bowel obstruction K56.609 Abdominal pain R10.9
[2024-07-28] MEDS: ONDANSETRON INJ 2 MG/ML 2 ML VIAL IV PRN (13:05)
[2024-07-28] MEDS: ACETAMINOPHEN 325 MG TAB PO PRN (21:00)
[2024-07-29 07:08] VITALS: BP 158/97; TEMP 98.1; O2SAT 96
--- NOTE | 2024-07-29 12:19 | Surgery Progress Note ---
Date of Service July 29, 2024 Assessment & Plan (1) Incisional hernia: Plan: Feeling better. Will advance diet. Will reach out to primary service. Okay for discharge from my standpoint with follow-up with Dr. Tashi Curiel in the next week or so. (2) Abdominal pain: (3) Spigelian hernia: Admission and Anticipated Discharge Date Admission Date: July 27, 2024 Subjective Patient seen. Feeling much better. No nausea or abdominal pain currently other than some tenderness at the hernia site. She is hungry Physical Exam Constitutional: WD/WN, vitals as above no acute distress and not ill appearing Eyes: PERRL, conjunctivae normal, anicteric sclerae EOM intact bilaterally ENMT: external ear and nose normal, oropharynx normal Ears: no hearing impairment Neck: trachea midline, no thyromegaly Respiratory: normal respiratory effort; no respiratory distress and does not use accessory muscles Cardiovascular: Rate/Rhythm: regular rate and regular rhythm Gastrointestinal (Abdomen): Soft. Mild tenderness at the hernia site. Currently reduced. Skin: no rashes, warm and dry Psychiatric: Orientation: alert, oriented x 3 and cooperative Results & Data Vital Signs (Past 12 Hours) Vital Signs Temp Pulse Resp BP Pulse Ox O2 Del Method 07/29/24 07:20 Room Air 07/29/24 07:08 36.7 C 75 16 158/97 H 96 Room Air PG Care Time/CCT Total # of Minutes Spent Total Time Spent with Patient: Total time spent is greater than 50% in coordination of care (as documented) at patient's floor/unit and/or counseling patient: Coding Level of Care Code 90749 SUB INP/OBS CARE 06/14MIN Diagnoses Incisional hernia K43.2 Abdominal pain R10.9 Spigelian hernia K43.9
[2024-07-29 13:12] VITALS: PULSE 71
--- NOTE | 2024-07-29 14:20 | Discharge Summary ---
Discharge Summary Date of Service July 29, 2024 Principal Dx & Hospital Course #1 = Principal Diagnosis (1) Spigelian hernia: (2) Small bowel obstruction: (3) Abdominal pain: Plan The patient is a 49-year-old female with a past medical history including allergic symptoms, muscle spasm, GERD, asthma, hypertension, chronic pain syndrome, and migraine headache. Presented to the ED with complaints of abdominal pain and nausea that began earlier in the afternoon on 07/27 and worsened. She underwent a cholecystectomy on 06/23/2024, and on 07/21/2024 reports noting a palpable lump noted at her follow-up surgical visit. She was told this likely was a small hernia, and that was easily reducible, and she had no significant symptoms at that point, and would just be watched. In the emergency department, CT scan abdomen pelvis showed a right sided spigelian hernia at the umbilicus, and concerns regarding high grade small bowel obstruction, and possibly developing incarceration at the hernia site. The patient's symptoms were significantly improved after the emergency department reduced the hernia. Due to the patient's presentation and changing CT scan, she was referred for evaluation for admission to the [facility], with consult to general surgery. #Spigelian hernia/high-grade small bowel obstruction/status post cholecystectomy - Spigelian hernia has stayed reduced since reduction in ED on presentation - Advanced to regular diet, well-tolerated without further nausea, vomiting, abdominal pain, bloating. Now actively passing gas - General surgery consulted Wear abdominal binder - recommend wearing at home with any activity to prevent hernia incarceration Recommend close outpatient f/u with Dr. Salas - Continue Protonix 20 mg daily, Zofran 4 mg q6h prn nausea #Hypokalemia Potassium 3.3 on admission, repleted and augmented appropriately now WNL Chronic medical conditions: #Migraine headache-continue sumatriptan succinate as needed #GERD-change pantoprazole from 20 mg p.o. to 40 mg IV daily. Holding famotidine #Asthma-continue routine inhalers #Hypertension-Hold losartan. Placed on hydralazine 10 mg IV every 6 hours as needed for systolic blood pressure greater than 160 #Chronic pain syndrome-holding nortriptyline, cyclobenzaprine, and oxycodone, and little treatment as above Dispo: Discharged home 07/29 with plan to closely follow-up with general surgery outpatient Notes For Next Care Provider Recommend close follow-up with Dr. Salas outpatient Medication Changes From Visit Zofran 4 mg q6h prn nausea Admission HPI Per Admitting Provider The patient is a 49-year-old female with a past medical history including allergic symptoms, muscle spasm, GERD, asthma, hypertension, chronic pain syndrome, and migraine headache.The patient presents to the emergency department with complaints of abdominal pain and nausea that began earlier in the afternoon, had improved somewhat, and then worsened toward the evening. She underwent a cholecystectomy on 06/23/2024, and on 07/21/2024 reports noting a palpable lump noted at her follow-up surgical visit. She was told this likely was a small hernia, and that was easily reducible, and she had no significant symptoms at that point, and would just be watched. Due to symptoms that began earlier in the day today, and her sense that the lump was being enlarged and was now tender, she presents to the ED as noted. In the emergency department, CT scan abdomen pelvis showed a right sided spigelian hernia, at the umbilicus, and concerns regarding high grade small bowel obstruction, and possibly developing incarceration at the hernia site. The Patient symptoms were significantly improved after the emergency department reduced the hernia. Due to the patient's presentation and changing CT scan, she was referred for evaluation for admission to the [facility], with consult to general surgery, who will see the patient in the a.m. Discharge Exam General: No acute distress, nondiaphoretic, well-developed, well-nourished. Cardiac: Regular rate and rhythm without murmurs gallops or rubs. Pulm: Clear to auscultation bilaterally without wheezes, rales or rhonchi. Normal respiratory effort. 96% on room air. Abdominal: Soft, nontender, nondistended. Bowel sounds present. Lap maren incisions healing well without signs of infection. No hernia appreciated at this time. Neuro: A&O x3. No focal neurological deficits. Discharge Plan Discharge Items Patient Disposition: Home - Self-Care Reason For Visit: SBO, SPIGELIAN HERNIA Discharge Diagnosis: Spigelian hernia, reduced High grade small bowel obstruction, resolved Condition on Discharge: Good Activity: Resume your previous activity Lifting: No more than 10 pounds Non-emergency contact: Primary Care Provider and Booth Usher Call non-emergency contact if: you have any medication questions and your symptoms worsen Follow-up/Referrals: Jessie Desai MD [Primary Care Provider] - (Follow-up in 1-2 weeks) Laurie Salas DO [Physician] - (call office for a follow up appointment ) Diet: Regular Addtl Attending Provider Instructions: Bethany, You were admitted to the hospital with persistent nausea and vomiting. You were found to have a spigelian hernia and high-grade bowel obstruction. Your hernia was reduced in the ED and has remained reduced. Your bowel obstruction resolved on its own. Upon discharge from the hospital: * Slowly advance back to your regular diet. * Continue to wear your abdominal binder. You may remove for short breaks and for showering. * Take Zofran 4 mg every 6 hours as needed for nausea. * Continue your home medications as prescribed. * Follow-up with Dr. Salas. It was a pleasure taking care of you while you were in the hospital! Addtl Occupational Physician Provider Instructions: Call Dr Salas office for a follow up appointment regarding your hernia. Pending Studies at Discharge: No Stand-Alone Forms: My [facility] [employer], Work/School Release, Smoking Cessation Medications and DC Order Prescriptions: New ondansetron HCl 4 mg tablet 4 mg PO Q6H PRN (Reason: nausea and vomiting) Qty: 14 0RF Continued cyclobenzaprine 10 mg tablet 10 mg PO HS PRN (Reason: Pain) famotidine 40 mg tablet 40 mg PO HS fexofenadine [Allergy Relief (fexofenadine)] 180 mg tablet 180 mg PO QAM fluticasone propionate 50 mcg/actuation spray,suspension 2 spray intranasal DAILY Rx Instructions: administer into each nostril hydroxyzine HCl 25 mg tablet 25 mg PO BID PRN (Reason: Itching) losartan 100 mg tablet 100 mg PO QAM nortriptyline 25 mg capsule 25 mg PO HS pantoprazole 20 mg tablet,delayed release (DR/EC) 20 mg PO QAM sumatriptan succinate [Imitrex] 50 mg tablet See Rx Instructions PO .COMPLEX Rx Instructions: take 1 tab at onset of headache; if no relief may repeat 1 tab after at least 2 hrs; max = 4 tabs/24 hr PO azelastine 137 mcg (0.1 %) spray,non-aerosol 2 spray intranasal BID Rx Instructions: administer into each nostril ofloxacin 0.3 % drops 2 drp OTL UD PRN (Reason: WATER IN EARS) Discharge Orders: Discharge Order (Routine); Ordered 07/29/24 Ordered By: Miriam Malone Admission Data Admit Date/Time: 07/27/24 23:57 Attending Provider: Bogdan London Admit Provider: Hardik Lambert Primary Care Provider: Jessie Desai Other Providers: Giles Villeda Other Interventions: Discharge Summary Assessment (RN) Last Done: 07/29/24 13:10 Hospital Stay Data Consultations 07/27/24 23:18 Consult General Surgery Routine Diagnostic Imagining Performed 07/27/24 19:39 CT abd pelvis IV con only Stat Pending Results Patient Have Any Pending Studies at Discharge: No Discharge Instructions Given to Patient (Per Discharging Provider) Bethany, You were admitted to the hospital with persistent nausea and vomiting. You were found to have a spigelian hernia and high-grade bowel obstruction. Your hernia was reduced in the ED and has remained reduced. Your bowel obstruction resolved on its own. Upon discharge from the hospital: * Slowly advance back to your regular diet. * Continue to wear your abdominal binder. You may remove for short breaks and for showering. * Take Zofran 4 mg every 6 hours as needed for nausea. * Continue your home medications as prescribed. * Follow-up with Dr. Salas. It was a pleasure taking care of you while you were in the hospital! Supervising Physician Co-Signing Physician Notes I personally examined the patient and verified all pina points of history and exam, discussed case, and agree with decision making with Jo Malone PA-C feeling better ate solid food well no pain no nausea vitals noted nad heent nc at mmm abd soft nd nt no guarding no rebound SBO - improved. safe for home. outpt f/u. Total Time Total Time Spent Total Time Spent (In Minutes): Greater than 30 minutes spent completing this discharge process including direct patient care, medication reconciliation, documentation, review of labs and images, and coordination of care. Coding Level of Care Code 53655 INP/OBS DISCH >30 MIN Diagnoses Spigelian hernia K43.9 Small bowel obstruction K56.609 Abdominal pain R10.9
== END 2024-07-29 13:27 | disposition home or self-care (01) | DRG 395 ==
LOC: ED 19:24 → 3W 23:57 → SUATTDRO 23:57 → 3W 07-28 02:16